=== PATIENT | female | born 1940 | race Caucasian/White ===

== ENCOUNTER 2017-05-16 17:25 | Observation (INO) | payer MEDICARE, MEDICAID ==
[~2017-05-16] VITALS: Ht 157.5 cm; Wt 81.6 kg
[~2017-05-16 17:25] MED LIST: ALBU8.5H IH; AMLO-99 PO; CLON-327 PO; CYCL-277 PO; DICL100G39 TOP; EZET10TA41 PO; FOLI0.8T29 PO; GABA-549 PO; HYDR-2966 PO; IBUP600T22 PO; LIDO700A29 TD; LOSA50TA72 PO; MELO-207 PO; METF-410 PO; METH2.5T43 PO; MONT10TA PO; OXYC-870 PO; POTA20TA94 PO; RANI-318 PO; SIMV-49 PO; SITA100T PO; TIMO5DRO3 OP; TRAM-420 PO; TRILI135PT PO
--- NOTE | 2017-05-16 17:31 | ER Report ---
History and Physical Time Seen By MD: 17:31 (BECKI MURRAY MD) HPI/ROS CHIEF COMPLAINT: cough with pink sputum. HISTORY OF PRESENT ILLNESS: This is a 76 year old female. She was diagnosed with influenza last Tuesday at Wilfredo Alvarado's office. At that time, started on 2 liters of oxygen. She was recommended for admission at that time, but wanted to try to treat at home. Had a follow-up with her again. Today, started to have pink sputum and her cough seems to be worsened. She had diffuse rib and back pain from coughing so much. She is still on the 2 liters of oxygen by nasal canula. Fevers seem to be improving. She finished her Tamiflu yesterday. No other bleeding such as blood in stool, urine, or bruising. No blood thinners. REVIEW OF SYSTEMS: Constitutional: As above. Eyes: No vision changes. ENT: Sore throat and congestion mild. Cardiovascular: No palpitations. Respiratory: As above. Gastrointestinal: No abdominal pain. No nausea or vomiting. No change in bowel movements. Genitourinary: No dysuria. No frequency Musculoskeletal: Pain in ribs and back, but no other. Skin: No rashes. No bruising. Neurological: No numbness. No headache. (BECKI MURRAY MD) Allergies: Coded Allergies: Influenza Virus Vaccines (Verified Allergy, Unknown, 05/16/17) Iodine and Iodide Containing Produc (Verified Allergy, Unknown, 05/16/17) Penicillins (Unverified Allergy, Unknown, 05/16/17) Sulfa (Sulfonamide Antibiotics) (Unverified Allergy, Unknown, 05/16/17) egg (Verified Allergy, Unknown, 05/16/17) morphine (Unverified Allergy, Unknown, 05/16/17) Home Meds Active Scripts Ibuprofen (IBUPROFEN) 600 Mg Tablet, 1 TAB PO Q6H for PAIN, #50 Prov:BRY ALAN DO 02/06/15 Tramadol Hcl (TRAMADOL HCL) 50 Mg Tablet, 50-100 MG PO Q4-6H, #20 Prov:BRY ALAN DO 02/06/15 Reported Medications Diclofenac Sodium 1% Gel (VOLTAREN 1% GEL) 100 Gm Gel..gram., 1 DEANNE TOP QID Y for RASH 02/06/15 Fenofibrate (TRILIPIX) 135 Mg Capsule.dr, 135 MG PO DAILY 02/06/15 Timolol (BETIMOL) 5 Ml Drops, 1 GTT OP BID 02/06/15 Montelukast Sodium (SINGULAIR) 10 Mg Tablet, 1 TAB PO QDAY, TAB 02/06/15 Simvastatin (SIMVASTATIN) 20 Mg Tablet, 20 MG PO HS, TAB 02/06/15 Ranitidine Hcl (RANITIDINE HCL) 150 Mg Tablet, 150 MG PO BID 02/06/15 Albuterol Sulfate 90 Mcg/Act (PROAIR HFA 90 MCG/ACT) 8.5 Gm Hfa.aer.ad, 1-2 PUFF IH 3-4XD Y for SHORTNESS OF BREATH 02/06/15 Potassium Chloride (POTASSIUM CHLORIDE) 20 Meq Tab.er.prt, 20 MEQ PO QDAY 02/06/15 Oxycodone Hcl/Acetaminophen (PERCOCET 10-325 MG TABLET) 1 Each Tablet, 1 EACH PO Q4-6H Y for PAIN, TAB 02/06/15 Methotrexate Sodium (METHOTREXATE) 2.5 Mg Tablet, 6 TAB PO QWEEK 02/06/15 Metformin Hcl (METFORMIN HCL) 500 Mg Tablet, 1 TAB PO TID, TAB 02/06/15 Meloxicam (MELOXICAM) 15 Mg Tablet, 15 MG PO QDAY 02/06/15 Losartan Potassium (LOSARTAN POTASSIUM) 50 Mg Tablet, 50 MG PO QDAY 02/06/15 Lidocaine (LIDODERM) 700 Mg Adh..patch, 1 PATCH TD QDAY 02/06/15 Sitagliptin Phosphate (JANUVIA) 100 Mg Tablet, 100 MG PO QDAY 02/06/15 Hydrochlorothiazide (HYDROCHLOROTHIAZIDE) 25 Mg Tablet, 1 TAB PO QDAY, TAB 02/06/15 Gabapentin (GABAPENTIN) 300 Mg Capsule, 300 MG PO QID, CAPSULE 02/06/15 Folic Acid (FOLIC ACID) 0.8 Mg Tablet, 0.8 MG PO DAILY 02/06/15 Ezetimibe (ZETIA) 10 Mg Tablet, 10 MG PO QDAY 02/06/15 Cyclobenzaprine Hcl (CYCLOBENZAPRINE HCL) 5 Mg Tablet, 10 MG PO TID Y for PAIN, #18 TAB 02/06/15 Clonidine Hcl (CLONIDINE HCL) 0.1 Mg Tablet, 0.1 MG PO TID, TAB 11/19/15 Amlodipine Besylate (AMLODIPINE BESYLATE) 10 Mg Tablet, 1 TAB PO QDAY, TAB 02/06/15 Reviewed Nurses Notes: Yes (BECKI MURRAY MD) Hx Smoking: Yes Smoking Status: Former Smoker Hx Substance Use Disorder: No Hx Alcohol Use: No (BECKI MURRAY MD) Constitutional Vital Sign - Last 24 Hours 05/16/17 05/16/17 05/16/17 05/16/17 17:30 17:31 17:35 17:40 Temp 97.6 Pulse 80 Resp 16 B/P (MAP) 107/97 107/97 (100) 151/123 (132) Pulse Ox 94 O2 Delivery Room Air O2 Flow Rate 2.0 05/16/17 05/16/17 05/16/17 05/16/17 17:42 17:42 17:45 17:52 Pulse 80 80 78 Resp 18 18 Pulse Ox 98 97 O2 Delivery Nasal Cannula O2 Flow Rate 2.0 05/16/17 05/16/17 05/16/17 05/16/17 18:00 18:05 18:25 18:30 Pulse 76 ??? B/P (MAP) 144/87 (106) Pulse Ox 93 92 05/16/17 05/16/17 05/16/17 05/16/17 18:45 19:00 19:14 19:15 Pulse 78 75 76 B/P (MAP) ???/??? (1665) 151/96 (114) Pulse Ox 98 97 94 05/16/17 05/16/17 05/16/17 05/16/17 19:30 19:45 20:00 20:15 Pulse 73 73 78 69 B/P (MAP) 138/88 (105) 142/101 (115) Pulse Ox 98 98 97 94 (BENAJ JADE DO) Physical Exam General Appearance: The patient is alert. Acute distress with coughing. Eyes: Pupils are equal, round. No pallor, injection or icterus. ENT: Mucous membranes are moist. Normal oral mucosa. Neck: Supple and non tender. No lymphadenopathy. Respiratory: Breathing easily and unlabored. Lungs are diminished, but no rales or wheezing. There are no retractions or accessory muscle use. Cardiovascular: Regular rate and rhythm. No murmurs, gallops or rubs. Normal capillary refill. No edema. Gastrointestinal: Abdomen is soft and non tender. Nondistended. Normal active bowel sounds. Neurological: Alert and oriented x3. No focal neurologic deficits Skin: Warm and dry. She has two small areas of bruising on her back, mid back and lower back to the right. Musculoskeletal: Extremities are nontender. Tender throughout the ribs from cough. No tenderness in palpation of the spine. DIFFERENTIAL DIAGNOSIS: After history and physical exam, differential diagnosis was considered for cough with pink tinged sputum, not on blood thinners, but with infectious process (Influenza), concern would be for progression on to pneumonia, PE, other infectious etiology. ([facility],BECKI Romero MD) Medical Decision Making Data Points Result Diagram: 05/16/17 1759 05/16/17 1759 Laboratory Hematology Test 05/16/17 17:59 05/16/17 19:09 Red Blood Count 4.94 M/uL (4.17-5.56) Mean Corpuscular Volume 87.2 fL (80.0-96.0) Mean Corpuscular Hemoglobin 28.5 pg (26.0-33.0) Mean Corpuscular Hemoglobin Concent 32.7 g/dL (32.0-36.0) Red Cell Distribution Width 14.7 % (11.5-14.5) Mean Platelet Volume 9.0 fL (7.2-11.1) Neutrophils (%) (Auto) 53.1 % (39.4-72.5) Lymphocytes (%) (Auto) 39.0 % (17.6-49.6) Monocytes (%) (Auto) 6.6 % (4.1-12.4) Eosinophils (%) (Auto) 0.7 % (0.4-6.7) Basophils (%) (Auto) 0.6 % (0.3-1.4) Nucleated RBC Relative Count (auto) 0.1 /100WBC Neutrophils # (Auto) 2.8 K/uL (2.0-7.4) Lymphocytes # (Auto) 2.0 K/uL (1.3-3.6) Monocytes # (Auto) 0.3 K/uL (0.3-1.0) Eosinophils # (Auto) 0.0 K/uL (0.0-0.5) Basophils # (Auto) 0.0 K/uL (0.0-0.1) Nucleated RBC Absolute Count (auto) 0.01 K/uL Prothrombin Time 13.0 seconds (12.0-14.4) Prothromb Time International Ratio 0.98 Activated Partial Thromboplast Time 27 seconds (23-35) D-Dimer Quantitative (PE/DVT) 0.71 ug/ml (0-0.50) Sodium Level 142 mmol/L (137-145) Potassium Level 3.6 mmol/L (3.5-5.0) Chloride Level 102 mmol/L (98-107) Carbon Dioxide Level 29 mmol/L (22-31) Blood Urea Nitrogen 20 mg/dl (7-18) Creatinine 1.10 mg/dl (0.52-1.04) Glomerular Filtration Rate Calc 48.4 Random Glucose 117 mg/dl (75-110) Lactate 1.3 mmol/L (0.7-2.1) Calcium Level 9.4 mg/dl (8.4-10.2) Total Bilirubin 0.6 mg/dl (0.2-1.3) Aspartate Amino Transf (AST/SGOT) 31 U/L (0-35) Alanine Aminotransferase (ALT/SGPT) 39 U/L (0-56) Alkaline Phosphatase 54 U/L (0-126) Total Protein 7.3 gm/dl (6.3-8.2) Albumin 4.1 g/dl (3.5-5.0) Urine Color Yellow Urine Clarity Clear Urine pH 5.0 pH (4.8-9.5) Urine Specific [place] 1.015 Urine Protein Negative mg/dL (NEGATIVE) Urine Glucose (UA) Negative mg/dL (NEGATIVE) Urine Ketones Negative mg/dL (NEGATIVE) Urine Blood Negative (NEGATIVE) Urine Nitrite Negative (NEGATIVE) Urine Bilirubin Negative (NEGATIVE) Urine Urobilinogen Negative mg/dL (0.2-1.9) Urine Leukocyte Esterase Small (NEGATIVE) Urine RBC None /HPF (0-2/HPF) Urine WBC 1 /HPF (0-5/HPF) Urine Squamous Epithelial Cells Many /LPF (</=FEW) Urine Bacteria Negative /HPF (NONE-FEW) Urine Hyaline Casts Few /LPF (NONE-FEW) Urine Mucus Few /HPF (NONE-FEW) Chemistry Test 05/16/17 17:59 05/16/17 19:09 White Blood Count 5.2 k/uL (4.5-11.0) Red Blood Count 4.94 M/uL (4.17-5.56) Hemoglobin 14.1 g/dL (12.0-16.0) Hematocrit 43.1 % (34.0-47.0) Mean Corpuscular Volume 87.2 fL (80.0-96.0) Mean Corpuscular Hemoglobin 28.5 pg (26.0-33.0) Mean Corpuscular Hemoglobin Concent 32.7 g/dL (32.0-36.0) Red Cell Distribution Width 14.7 % (11.5-14.5) Platelet Count 122 K/uL (150-450) Mean Platelet Volume 9.0 fL (7.2-11.1) Neutrophils (%) (Auto) 53.1 % (39.4-72.5) Lymphocytes (%) (Auto) 39.0 % (17.6-49.6) Monocytes (%) (Auto) 6.6 % (4.1-12.4) Eosinophils (%) (Auto) 0.7 % (0.4-6.7) Basophils (%) (Auto) 0.6 % (0.3-1.4) Nucleated RBC Relative Count (auto) 0.1 /100WBC Neutrophils # (Auto) 2.8 K/uL (2.0-7.4) Lymphocytes # (Auto) 2.0 K/uL (1.3-3.6) Monocytes # (Auto) 0.3 K/uL (0.3-1.0) Eosinophils # (Auto) 0.0 K/uL (0.0-0.5) Basophils # (Auto) 0.0 K/uL (0.0-0.1) Nucleated RBC Absolute Count (auto) 0.01 K/uL Prothrombin Time 13.0 seconds (12.0-14.4) Prothromb Time International Ratio 0.98 Activated Partial Thromboplast Time 27 seconds (23-35) D-Dimer Quantitative (PE/DVT) 0.71 ug/ml (0-0.50) Glomerular Filtration Rate Calc 48.4 Lactate 1.3 mmol/L (0.7-2.1) Calcium Level 9.4 mg/dl (8.4-10.2) Total Bilirubin 0.6 mg/dl (0.2-1.3) Aspartate Amino Transf (AST/SGOT) 31 U/L (0-35) Alanine Aminotransferase (ALT/SGPT) 39 U/L (0-56) Alkaline Phosphatase 54 U/L (0-126) Total Protein 7.3 gm/dl (6.3-8.2) Albumin 4.1 g/dl (3.5-5.0) Urine Color Yellow Urine Clarity Clear Urine pH 5.0 pH (4.8-9.5) Urine Specific [place] 1.015 Urine Protein Negative mg/dL (NEGATIVE) Urine Glucose (UA) Negative mg/dL (NEGATIVE) Urine Ketones Negative mg/dL (NEGATIVE) Urine Blood Negative (NEGATIVE) Urine Nitrite Negative (NEGATIVE) Urine Bilirubin Negative (NEGATIVE) Urine Urobilinogen Negative mg/dL (0.2-1.9) Urine Leukocyte Esterase Small (NEGATIVE) Urine RBC None /HPF (0-2/HPF) Urine WBC 1 /HPF (0-5/HPF) Urine Squamous Epithelial Cells Many /LPF (</=FEW) Urine Bacteria Negative /HPF (NONE-FEW) Urine Hyaline Casts Few /LPF (NONE-FEW) Urine Mucus Few /HPF (NONE-FEW) Coagulation Test 05/16/17 17:59 Prothrombin Time 13.0 seconds Prothromb Time International Ratio 0.98 Activated Partial Thromboplast Time 27 seconds D-Dimer Quantitative (PE/DVT) 0.71 ug/ml Urinalysis Test 05/16/17 19:09 Urine Color Yellow Urine Clarity Clear Urine pH 5.0 pH (4.8-9.5) Urine Specific [place] 1.015 Urine Protein Negative mg/dL (NEGATIVE) Urine Glucose (UA) Negative mg/dL (NEGATIVE) Urine Ketones Negative mg/dL (NEGATIVE) Urine Blood Negative (NEGATIVE) Urine Nitrite Negative (NEGATIVE) Urine Bilirubin Negative (NEGATIVE) Urine Urobilinogen Negative mg/dL (0.2-1.9) Urine Leukocyte Esterase Small (NEGATIVE) Urine RBC None /HPF (0-2/HPF) Urine WBC 1 /HPF (0-5/HPF) Urine Squamous Epithelial Cells Many /LPF (</=FEW) Urine Bacteria Negative /HPF (NONE-FEW) Urine Hyaline Casts Few /LPF (NONE-FEW) Urine Mucus Few /HPF (NONE-FEW) (BENJA JADE DO) EKG/Imaging EKG Interpretation 12 lead EKG: Rhythm: normal sinus rhythm, rate 82 [place]es: normal QRS: Right bundle branch block ST segments: Nonspecific T-wave changes (BECKI MURRAY MD) EKG Interpretation 12 lead EK Rhythm: normal sinus rhythm Dawes: normal QRS: Right bundle branch block pattern ST segments: normal, comparison to previous EKG dated 12/14/13, no significant change Imaging X-ray: Two-view chest x-ray was obtained. I viewed the images myself on the PACS system. My interpretation of the images is: No infiltrate, no effusion, normal mediastinum., Comparison to previous x-ray dated 06/02/16, no significant change. The radiologist interpretation had no clinically significant variation from this interpretation. (BENJA JADE DO) ED Course/Re-evaluation Clinical Indication for ER IV: IV Access (BECKI MURRAY MD) ED Course Care was assumed at shift change with diagnostic studies pending. Patient with continued respiratory distress after having influenza. She now has COPD exacerbation with pink tinged sputum. She has a known history of obstructive an asthmatic symptoms. She's never been a smoker. She's better with a DuoNeb. Patient has elevated d-dimer worrisome for potential pulmonary embolism with her pink tinged sputum. She may need a ventilation perfusion scan. Patient has asthma exacerbation from her recent influenza. Her case was discussed with the hospitalist science consultant Dr. Goodson for consideration of admission. 05/16/2017 7:11:28 pm case discussed with Dr. Miguel A Cordova hospitalist on-call Decision to Disposition Date: May 16, 2017 Decision to Disposition Time: 19:11 (BENJA JADE DO) Depart Departure Latest Vital Signs Vital Signs Date Time Temp Pulse Resp B/P (MAP) Pulse Ox O2 Delivery O2 Flow Rate FiO2 05/16/17 20:15 69 94 05/16/17 20:00 142/101 (115) 05/16/17 17:52 18 05/16/17 17:42 Nasal Cannula 2.0 05/16/17 17:30 97.6 (BENJA JADE DO) Impression: Primary Impression: Asthma exacerbation Additional Impressions: Influenza Blood-tinged sputum Condition: Improved Disposition: Admitted from ER Referrals: WILFREDO ALVARADO PA-C (PCP) Problem Qualifiers Primary Impression: Asthma exacerbation Asthma severity: mild Asthma persistence: intermittent Qualified Codes: J45.21 - Mild intermittent asthma with (acute) exacerbation BECKI MURRAY MD May 16, 2017 17:31 BENJA JADE DO May 16, 2017 18:16
[2017-05-16] MEDS ORDERED: ACETAMIN/CODEINE #3 300-30 MG PO ONE (17:40)
[2017-05-16] MEDS ORDERED: ALBUTEROL/IPRATROPIUM 3 ML NEB ONE (17:45)
--- NOTE | 2017-05-16 18:11 | EKG ---
FAC[place]: [facility] [place]IENT NAME: JIMENA HERR : [id number] MR: [id number] V: [id number] EXAM DATE: ORDERING PHYSICIAN: BECKI MURRAY TECHNOLOGIST: AVEL Hernandez Reason : COUGH Blood Pressure : / mmHG Vent. Rate : 082 BPM Atrial Rate : 082 BPM P-R Int : 156 ms QRS Dur : 144 ms QT Int : 436 ms P-R-T Axes : 060 085 -03 degrees QTc Int : 509 ms Normal sinus rhythm Right bundle branch block Abnormal ECG No previous ECGs available Confirmed by DAISY JONES ([id number]) on 05/16/2017 10:59:06 PM Referred By: TREVOR Confirmed By:DAISY JONES
[2017-05-16 18:14] LABS: PLATELET COUNT, AUTOMATED 122 K/uL (150-450)
[2017-05-16 18:32] LABS: INR 0.98
[2017-05-16] MEDS ORDERED: INFLUENZA VIRUS VAC 0.5 ML SYR IM ONLY ONE (19:30)
[2017-05-16] MEDS ORDERED: ALBUTEROL 2.5 MG/3 ML NEB NEB PRN (19:30)
[2017-05-16] MEDS ORDERED: BENZONATATE 100 MG CAP PO PRN (19:30)
--- NOTE | 2017-05-16 19:33 | RADIOLOGY IMAGING REPORT ---
FACILITY: [facility] - [place] PATIENT NAME: Juli Almeida : 1940 MR: [id number] V: [id number] EXAM DATE: ORDERING PHYSICIAN: BECKI MURRAY TECHNOLOGIST: [facility] [place] Patient: Juli Almeida : 1940 Visit/Account:[id number] Date of Sevice: 05/16/2017 Technique: CHEST PA AND LAT HISTORY: cough, pink sputum Comparison studies: Chest radiographs June 02, 2016 FINDINGS: No lobar airspace consolidation. No pleural effusion. The cardiac silhouette is unchanged. Surgical clips overlie the left chest. IMPRESSION: 1. No acute cardiopulmonary process. Report Dictated By: Florentino Gonzalez DO at 05/16/2017 7:28 PM Report E-Signed By: Florentino Gonzalez DO at 05/16/2017 7:30 PM WSN:[id number]
[2017-05-16] MEDS ORDERED: methylPREDNIS SUCC 125 MG/2ML IVP ONE (20:05)
--- NOTE | 2017-05-16 21:38 | History & Physical ---
History of Present Illness History of Present Illness 76yo female with a h/o Asthma, RA, T2DM and recent influenza who was sent to the ER for a worsening cough. 7 days ago, she developed fevers and chills. 6 days ago, she went to her PCP's office and was diagnosed with influenza. She was started on 5 days of Tamiflu and Levofloxacin. She was found to be hypoxic , so was placed on 24 hour a day O2 at 2 liters. The fevers resolved yesterday. However, today, she developed a worsening cough with pink sputum and felt more SOB. She denies edema, orthopnea, PND. She has pain in her upper back below her ribs with coughing that started today. In the ER, she was given Tylenol with codeine, DuoNeb and SoluMedrol IV. History Problems: (1) Asthma Status: Chronic (2) Hyperlipemia (3) HTN (hypertension) Status: Chronic (4) T2DM (type 2 diabetes mellitus) Status: Chronic (5) Rheumatoid arthritis Status: Chronic Home Meds Active Scripts Ibuprofen (IBUPROFEN) 600 Mg Tablet, 1 TAB PO Q6H for PAIN, #50 Prov:BRY ALAN DO 02/06/15 Tramadol Hcl (TRAMADOL HCL) 50 Mg Tablet, 50-100 MG PO Q4-6H, #20 Prov:BRY ALAN DO 02/06/15 Reported Medications Diclofenac Sodium 1% Gel (VOLTAREN 1% GEL) 100 Gm Gel..gram., 1 DEANNE TOP QID Y for RASH 02/06/15 Fenofibrate (TRILIPIX) 135 Mg Capsule.dr, 135 MG PO DAILY 02/06/15 Timolol (BETIMOL) 5 Ml Drops, 1 GTT OP BID 02/06/15 Montelukast Sodium (SINGULAIR) 10 Mg Tablet, 1 TAB PO QDAY, TAB 02/06/15 Simvastatin (SIMVASTATIN) 20 Mg Tablet, 20 MG PO HS, TAB 02/06/15 Ranitidine Hcl (RANITIDINE HCL) 150 Mg Tablet, 150 MG PO BID 02/06/15 Albuterol Sulfate 90 Mcg/Act (PROAIR HFA 90 MCG/ACT) 8.5 Gm Hfa.aer.ad, 1-2 PUFF IH 3-4XD Y for SHORTNESS OF BREATH 02/06/15 Potassium Chloride (POTASSIUM CHLORIDE) 20 Meq Tab.er.prt, 20 MEQ PO QDAY 02/06/15 Oxycodone Hcl/Acetaminophen (PERCOCET 10-325 MG TABLET) 1 Each Tablet, 1 EACH PO Q4-6H Y for PAIN, TAB 02/06/15 Methotrexate Sodium (METHOTREXATE) 2.5 Mg Tablet, 6 TAB PO QWEEK 02/06/15 Metformin Hcl (METFORMIN HCL) 500 Mg Tablet, 1 TAB PO TID, TAB 02/06/15 Meloxicam (MELOXICAM) 15 Mg Tablet, 15 MG PO QDAY 02/06/15 Losartan Potassium (LOSARTAN POTASSIUM) 50 Mg Tablet, 50 MG PO QDAY 02/06/15 Lidocaine (LIDODERM) 700 Mg Adh..patch, 1 PATCH TD QDAY 02/06/15 Sitagliptin Phosphate (JANUVIA) 100 Mg Tablet, 100 MG PO QDAY 02/06/15 Hydrochlorothiazide (HYDROCHLOROTHIAZIDE) 25 Mg Tablet, 1 TAB PO QDAY, TAB 02/06/15 Gabapentin (GABAPENTIN) 300 Mg Capsule, 300 MG PO QID, CAPSULE 02/06/15 Folic Acid (FOLIC ACID) 0.8 Mg Tablet, 0.8 MG PO DAILY 02/06/15 Ezetimibe (ZETIA) 10 Mg Tablet, 10 MG PO QDAY 02/06/15 Cyclobenzaprine Hcl (CYCLOBENZAPRINE HCL) 5 Mg Tablet, 10 MG PO TID Y for PAIN, #18 TAB 02/06/15 Clonidine Hcl (CLONIDINE HCL) 0.1 Mg Tablet, 0.1 MG PO TID, TAB 02/06/15 Amlodipine Besylate (AMLODIPINE BESYLATE) 10 Mg Tablet, 1 TAB PO QDAY, TAB 02/06/15 Allergies: Coded Allergies: Influenza Virus Vaccines (Verified Allergy, Unknown, 05/16/17) Iodine and Iodide Containing Produc (Verified Allergy, Unknown, 05/16/17) Penicillins (Unverified Allergy, Unknown, 05/16/17) Sulfa (Sulfonamide Antibiotics) (Unverified Allergy, Unknown, 05/16/17) egg (Verified Allergy, Unknown, 05/16/17) morphine (Unverified Allergy, Unknown, 05/16/17) Other Social/Family Hx Only smoked 5 years and quit in 1991. Rare alcohol use. Hx Smoking: Yes Smoking Status: Former Smoker Hx Alcohol Use: No Hx Substance Use Disorder: No Review of Systems All Systems Reviewed/Normal: Yes, Except as Noted Exam Vital Signs Vital Signs Date Time Temp Pulse Resp B/P (MAP) Pulse Ox O2 Delivery O2 Flow Rate FiO2 05/16/17 18:25 92 05/16/17 18:05 76 05/16/17 18:00 144/87 (106) 05/16/17 17:52 18 05/16/17 17:42 Nasal Cannula 2.0 05/16/17 17:30 97.6 General Appearance: Alert, Awake, Other (tired and coughing a lot) Neuro: No Gross deficits Eyes: PERRLA ENT: Moist Mucous Membranes Cardiovascular: Regular Rate and Rhythm, No JVD Respiratory: Clear to Auscultation (Limited by couging) GI: Abd Soft and Non-Tender Extremities: No Edema Integumentary: No Jaundice, No Cyanosis Medical Decision Making Data Points Result Diagram: 05/16/17175805/16/171758 Item Value Date Time Neutrophils (%) (Auto) 53.1 % 05/16/171758 Lymphocytes (%) (Auto) 39.0 % 05/16/171758 Monocytes (%) (Auto) 6.6 % 05/16/171758 Eosinophils (%) (Auto) 0.7 % 05/16/171758 Basophils (%) (Auto) 0.6 % 05/16/171758 Nucleated RBC Relative Count (auto) 0.1 /100WBC 05/16/171758 D-Dimer Quantitative (PE/DVT) 0.71 ug/ml H 05/16/171758 Creatinine 1.10 mg/dl H 05/16/171758 Blood Urea Nitrogen 20 mg/dl H 05/16/171758 Random Glucose 117 mg/dl H 05/16/171758 Lactate 1.3 mmol/L 05/16/171758 Calcium Level 9.4 mg/dl 05/16/171758 Total Bilirubin 0.6 mg/dl 05/16/171758 Aspartate Amino Transf (AST/SGOT) 31 U/L 05/16/17 175 Alanine Aminotransferase (ALT/SGPT) 39 U/L 05/16/17 175 Alkaline Phosphatase 54 U/L 05/16/171758 Total Protein 7.3 gm/dl 2/26/18 1759 Albumin 4.1 g/dl 05/16/17 175 Urine Leukocyte Esterase Small H 05/16/171908 Urine RBC None /HPF 05/16/171908 Urine WBC 1 /HPF 05/16/171908 Urine Squamous Epithelial Cells Many /LPF H 05/16/171908 EKG / Imaging Imaging CXR - 1. No acute cardiopulmonary process. Assessment and Plan Problems: (1) Hypoxia Status: Acute Assessment & Plan: She presented with a day of worsening cough and SOB. She was treated with Tamiflu and Levofloxacin for a 5 day course ending yesterday. CXR is wnl. CBC and differential are normal. She is afebrile. Likely, she has an asthma exacerbation. Her D-Dimer is slightly elevated and is reporting pink sputum. Will give a dose of renally dosed Lovenox and order a V/Q scan for the morning. (2) Asthma Status: Chronic Assessment & Plan: Continue IV steroids. Will give scheduled DuoNebs, Singulair and prn Albuterol. (3) HTN (hypertension) Status: Chronic Assessment & Plan: We need to clarify her dosing and times. Continue Toprol, Losartan, Amlodipine and HCTZ with parameters. (4) T2DM (type 2 diabetes mellitus) Status: Chronic Assessment & Plan: Hold metformin, and continue Januvia. SSI to cover. (5) Rheumatoid arthritis Status: Chronic Assessment & Plan: Hold leflunomide and MTX for now. (6) CKD (chronic kidney disease) stage 3, GFR 30-59 ml/min Status: Chronic Assessment & Plan: Baseline creatinine appears to be 1.1. Copies to: WILFREDO GALLARDO PA-C Venous Thromboembolism Antithrombotics Is Pt On Any Antithrombotics?: No Exam Sepsis Risk: No Definite Risk Problem Qualifiers (1) Asthma: Asthma complication type: with acute exacerbation DAISY JONES MD May 16, 2017 21:38
[2017-05-16] MEDS ORDERED: cloNIDine HCL 0.1 MG TAB PO ONE (21:55)
[2017-05-16] MEDS ORDERED: GABAPENTIN 300 MG CAP PO ONE (21:55)
[2017-05-16] MEDS ORDERED: ENOXAPARIN 100 MG/ML SYR SC SCH (22:00)
[2017-05-16 22:41] VITALS: BP 143/81
[2017-05-16] MEDS: guaiFENesin 600 MG TABCR PO SCH (22:42)
[2017-05-17 03:06] VITALS: BP 159/94
[2017-05-17] MEDS: methylPREDNIS SUCC 125 MG/2ML IVP SCH ×2 (04:05→12:16)
[2017-05-17] MEDS: ALBUTEROL/IPRATROPIUM 3 ML NEB NEB SCH ×3 (05:38→13:26)
[2017-05-17 07:11] VITALS: BP 141/89
[2017-05-17] MEDS: cloNIDine HCL 0.1 MG TAB PO SCH ×2 (08:32→14:00)
[2017-05-17] MEDS: guaiFENesin 600 MG TABCR PO SCH (08:33)
[2017-05-17] MEDS: GABAPENTIN 300 MG CAP PO SCH ×2 (08:33→12:15)
[2017-05-17] MEDS: INSULIN HUM LISPRO 100 UN/ML 3 ML VIAL SUBQ PRN ×2 (08:36→12:08)
[2017-05-17] MEDS ORDERED: LOSARTAN POTASSIUM 50 MG TAB PO SCH (09:00)
[2017-05-17] MEDS ORDERED: METOPROLOL SUCC XL 50 MG TABCR 50 MG TAB.ER.24H PO SCH (09:00)
[2017-05-17] MEDS ORDERED: HYDROCHLOROTHIAZIDE 25 MG TAB PO SCH (09:00)
[2017-05-17] MEDS ORDERED: amLODIPine BESYL(*) 5 MG TAB PO SCH (09:00)
[2017-05-17] MEDS ORDERED: MONTELUKAST SODIUM 10 MG TAB PO SCH (09:00)
[2017-05-17 11:27] VITALS: Ht 157.5 cm; Wt 81.6 kg
[2017-05-17 11:59] VITALS: BP 149/82
--- NOTE | 2017-05-17 13:27 | RADIOLOGY IMAGING REPORT ---
FACILITY: [facility] - [place] PATIENT NAME: Juli Almeida : 1940 MR: [id number] V: [id number] EXAM DATE: ORDERING PHYSICIAN: RAJAT ATYLOR TECHNOLOGIST: Location: [facility] - [place] Patient: Juli Almeida : 1940 Visit/Account:[id number] Date of Sevice: 05/17/2017 Examination: Nuclear medicine ventilation and perfusion imaging COMPARISON: Chest x-ray yesterday. HISTORY: chest pain, hypoxia TECHNIQUE: 32.8 mCi aerosolized technetium 99m DTPA was administered by inhalation. Multiplanar static images w ere obtained. 2.5 mCi Tc MAA was injected intravenously. Gamma camera images were obtained of the chest in various orientations. FINDINGS: Lung ventilation radiotracer distribution: Mildly heterogeneous tracer distribution particularly in t he left lung but no segmental ventilation defect. Lung perfusion radiotracer distribution: Similar to the ventilation portion of study there is mildly heterogeneous distribution in the anterior left lung. No segmental perfusion defect. Correlation to chest x-ray: No consolidation or effusion. IMPRESSION: Negative VQ scan for pulmonary embolism. Report Dictated By: Philip Levine MD at 05/17/2017 1:21 PM Report E-Signed By: Philip Levine MD at 05/17/2017 1:23 PM WSN:[id number]
[2017-05-17] MEDS ORDERED: MONT10TA PO (13:48)
[2017-05-17] MEDS ORDERED: GUAI600T57 PO (13:48)
[2017-05-17] MEDS ORDERED: PRED-1 PO (13:48)
[2017-05-17] MEDS ORDERED: METO-253 PO (13:48)
--- NOTE | 2017-05-17 14:02 | Hospitalist Depart ---
Discharge Summary Reason for Hosp/Final Diag: (1) Hypoxia Status: Acute Hospital Course & Plan: She presented with a day of worsening cough and SOB. She was treated with Tamiflu and Levofloxacin for a 5 day course ending yesterday. CXR is negative. CBC and differential are normal. She has been afebrile. Likely, she has an asthma exacerbation. Her D-Dimer was slightly elevated. She did have a dose of Lovenox empirically until V/Q scan could be done (she has severe allergy to IV contrast dye). Her V/Q scan is negative for pulmonary embolus. She was doing fairly well and tolerating low levels of activity. She will be on oxygen at 2L continuous for now. She will follow up closely with Wilfredo WEIR. She was advised to be off work until released to return by her primary care provider. (2) Asthma Status: Chronic Hospital Course & Plan: She will finish a short pulse of prednisone as an outpatient. She has also been started on Singulair 10mg daily. She did not wish to continue albuterol at this time. (3) HTN (hypertension) Status: Chronic Hospital Course & Plan: Continue Toprol, Losartan, Amlodipine, clonidine and HCTZ. (4) T2DM (type 2 diabetes mellitus) Status: Chronic Hospital Course & Plan: Continue metformin and Januvia. (5) Rheumatoid arthritis Status: Chronic Hospital Course & Plan: Hold leflunomide and Enbrel until instructed to resume by her primary care provider. (6) CKD (chronic kidney disease) stage 3, GFR 30-59 ml/min Status: Chronic Hospital Course & Plan: Stable. Baseline creatinine appears to be 1.1. Departure Weight (Pounds): 180 Result Diagram: 05/16/17175805/16/171758 Item Value Date Time Urine Mucus Few /HPF 05/16/17 1909 Urine Hyaline Casts Few /LPF 05/16/17 190 Urine Bacteria Negative /HPF 05/16/17 190 Urine Squamous Epithelial Cells Many /LPF H 05/16/17 190 Urine WBC 1 /HPF 05/16/17 190 Urine RBC None /HPF 05/16/17 190 Urine Leukocyte Esterase Small H 05/16/17 190 Urine Urobilinogen Negative mg/dL 05/16/171908 Urine Bilirubin Negative 05/16/171908 Urine Nitrite Negative 05/16/171908 Urine Blood Negative 05/16/171908 Urine Ketones Negative mg/dL 05/16/171908 Urine Glucose (UA) Negative mg/dL 05/16/171908 Urine Protein Negative mg/dL 05/16/171908 Urine Specific [place] 1.015 05/16/171908 Urine pH 5.0 pH 05/16/171908 Urine Clarity Clear 05/16/171908 Urine Color Yellow 05/16/171908 D-Dimer Quantitative (PE/DVT) 0.71 ug/ml H 05/16/171758 Activated Partial Thromboplast Time 27 seconds 05/16/171758 Prothromb Time International Ratio 0.98 05/16/171758 Prothrombin Time 13.0 seconds 05/16/171758 [facility] *LIVE* [address] [place] [address] EUGENIE TRIPATHI M.D., DIRECTOR OF LABORATORY SERVICES MARJ TAY M.D., PATHOLOGIST RUN DATE: 05/17/17 Specimen Inquiry Report PAGE 1 RUN TIME: 1001 PATIENT: JULI ALMEIDA ACCT: [id number] LOC: MED U : [id number] AGE/SX: 76/F ROOM: 2266 REG : 05/16/[address]: DAISY JONES MD : 1940 BED: 266 DIS : STATUS: ADM Mert TLOC: SPEC #: [id number] JEFFREY: 05/16/17 STATUS: RES REQ #: [id number] RECD: 05/16/[address] [facility] [address]: BECKI MURRAY MD SOURCE: BLOOD ENTR: 05/16/17-1739 [facility] DR: WLIFREDO GALLARDO PA-C [facility]: ORDERED: CULT BLOOD Procedure Result Verified BLOOD CULTURE Preliminary 05/17/17-1000 NO GROWTH AFTER 1 DAY, REINCUBATED [facility] *LIVE* [address] [place] [address] EUGENIE TRIPATHI M.D., DIRECTOR OF LABORATORY SERVICES MARJ TAY M.D., PATHOLOGIST RUN DATE: 05/17/17 Specimen Inquiry Report PAGE 1 RUN TIME: 1001 PATIENT: JULI ALMEIDA ACCT: [id number] LOC: MED U : [id number] AGE/SX: 76/F ROOM: [facility] REG : 05/16/[address]: DAISY JONES MD : 1940 BED: 266 DIS : STATUS: ADM Mert TLOC: SPEC #: [id number] JEFFREY: 05/16/17 STATUS: RES REQ #: [id number] RECD: 05/16/[address] [facility] [address]: BECKI MURRAY MD SOURCE: BLOOD ENTR: 05/16/17-[address]: WILFREDO GALLARDO PA-C [facility]: ORDERED: CULT BLOOD Procedure Result Verified BLOOD CULTURE Preliminary 05/17/17-1000 NO GROWTH AFTER 1 DAY, REINCUBATED Imaging PATIENT NAME: Juli Almeida : 1940 MR: [id number] V: [id number] EXAM DATE: [id number] ORDERING PHYSICIAN: BECKI MURRAY TECHNOLOGIST: Location: [facility] Patient: Juli Almeida : 1940 Visit/Account:[id number] Date of Sevice: 05/16/2017 Technique: CHEST PA AND LAT HISTORY: cough, pink sputum Comparison studies: Chest radiographs June 02, 2016 FINDINGS: No lobar airspace consolidation. No pleural effusion. The cardiac silhouette is unchanged. Surgical clips overlie the left chest. IMPRESSION: 1. No acute cardiopulmonary process. Report Dictated By: Florentino Gonzalez DO at 05/16/2017 7:28 PM Report E-Signed By: Florentino Gonzalez DO at 05/16/2017 7:30 PM WSN:[id number] PATIENT NAME: Juli Almeida : 1940 MR: [id number] V: [id number] EXAM DATE: [id number] ORDERING PHYSICIAN: RAJAT TAYLOR TECHNOLOGIST: Location: [facility] Patient: Juli Almeida : 1940 Visit/Account:[id number] Date of Sevice: 05/17/2017 Examination: Nuclear medicine ventilation and perfusion imaging COMPARISON: Chest x-ray yesterday. HISTORY: chest pain, hypoxia TECHNIQUE: 32.8 mCi aerosolized technetium 99m DTPA was administered by inhalation. Multiplanar static images were obtained. 2.5 mCi Tc MAA was injected intravenously. Gamma camera images were obtained of the chest in various orientations. FINDINGS: Lung ventilation radiotracer distribution: Mildly heterogeneous tracer distribution particularly in the left lung but no segmental ventilation defect. Lung perfusion radiotracer distribution: Similar to the ventilation portion of study there is mildly heterogeneous distribution in the anterior left lung. No segmental perfusion defect. Correlation to chest x-ray: No consolidation or effusion. IMPRESSION: Negative VQ scan for pulmonary embolism. Report Dictated By: Philip Levine MD at 05/17/2017 1:21 PM Report E-Signed By: Philip Levine MD at 05/17/2017 1:23 PM WSN:[id number] EKG PATIENT NAME: JULI ALMEIDA : [id number] MR: [id number] V: [id number] EXAM DATE: [id number] ORDERING PHYSICIAN: BECKI MURRAY TECHNOLOGIST: AVEL Hernandez Reason : COUGH Blood Pressure : / mmHG Vent. Rate : 082 BPM Atrial Rate : 082 BPM P-R Int : 156 ms QRS Dur : 144 ms QT Int : 436 ms P-R-T Axes : 060 085 -03 degrees QTc Int : 509 ms Normal sinus rhythm Right bundle branch block Abnormal ECG No previous ECGs available Confirmed by DAISY JONES ([id number]) on 05/16/2017 10:59:06 PM Referred By: TREVOR Confirmed By:DAISY JONES Condition: Improved Discharge: Home Time Spent: > 30 min Discharge Instructions Home Meds Active Scripts Prednisone 10 Mg Tab (PREDNISONE 10 MG TAB) 10 Mg Tablet, 40 MG PO QDAY, #14 TAB 0 Refills Four tabs a day for two days, then two tabs a day for two days, then one tab a day for two days, then off. Prov:LALA TAYLOR MD 05/17/17 Guaifenesin (MUCINEX) 600 Mg Tablet.er, 1200 MG PO BID, #20 TAB 0 Refills Prov:LALA TAYLOR MD 05/17/17 Montelukast Sodium (SINGULAIR) 10 Mg Tablet, 10 MG PO QDAY, #30 TAB 1 Refill Prov:LALA TAYLOR MD 05/17/17 Reported Medications Etanercept (ENBREL) 50 Mg/1 Ml Pen.injctr, 50 MG SQ QWEEK 05/17/17 Metoprolol Succinate (METOPROLOL SUCCINATE) 100 Mg Tab.er.24h, 100 MG PO DAILY, #30 TAB 05/17/17 Fenofibrate (TRILIPIX) 135 Mg Capsule.dr, 135 MG PO DAILY 02/06/15 Timolol (BETIMOL) 5 Ml Drops, 1 GTT OP BID 02/06/15 Simvastatin (SIMVASTATIN) 20 Mg Tablet, 20 MG PO HS, TAB 02/06/15 Ranitidine Hcl (RANITIDINE HCL) 150 Mg Tablet, 150 MG PO BID 02/06/15 Potassium Chloride (POTASSIUM CHLORIDE) 20 Meq Tab.er.prt, 20 MEQ PO QDAY 02/06/15 Metformin Hcl (METFORMIN HCL) 500 Mg Tablet, 1 TAB PO TID, TAB 02/06/15 Meloxicam (MELOXICAM) 15 Mg Tablet, 15 MG PO QDAY 02/06/15 Losartan Potassium (LOSARTAN POTASSIUM) 50 Mg Tablet, 100 MG PO QDAY 02/06/15 Lidocaine (LIDODERM) 700 Mg Adh..patch, 1 PATCH TD QDAY 02/06/15 Sitagliptin Phosphate (JANUVIA) 100 Mg Tablet, 100 MG PO QDAY 02/06/15 Hydrochlorothiazide (HYDROCHLOROTHIAZIDE) 25 Mg Tablet, 1 TAB PO QDAY, TAB 02/06/15 Gabapentin (GABAPENTIN) 300 Mg Capsule, 300 MG PO QID, CAPSULE 02/06/15 Ezetimibe (ZETIA) 10 Mg Tablet, 10 MG PO QDAY 02/06/15 Cyclobenzaprine Hcl (CYCLOBENZAPRINE HCL) 5 Mg Tablet, 10 MG PO TID Y for PAIN, #18 TAB 02/06/15 Clonidine Hcl (CLONIDINE HCL) 0.1 Mg Tablet, 0.1 MG PO TID, TAB 02/06/15 Amlodipine Besylate (AMLODIPINE BESYLATE) 10 Mg Tablet, 1 TAB PO QDAY, TAB 02/06/15 Discontinued Reported Medications Diclofenac Sodium 1% Gel (VOLTAREN 1% GEL) 100 Gm Gel..gram., 1 DEANNE TOP QID Y for RASH 02/06/15 Montelukast Sodium (SINGULAIR) 10 Mg Tablet, 1 TAB PO QDAY, TAB 02/06/15 Albuterol Sulfate 90 Mcg/Act (PROAIR HFA 90 MCG/ACT) 8.5 Gm Hfa.aer.ad, 1-2 PUFF IH 3-4XD Y for SHORTNESS OF BREATH 02/06/15 Oxycodone Hcl/Acetaminophen (PERCOCET 10-325 MG TABLET) 1 Each Tablet, 1 EACH PO Q4-6H Y for PAIN, TAB 02/06/15 Methotrexate Sodium (METHOTREXATE) 2.5 Mg Tablet, 6 TAB PO QWEEK 02/06/15 Folic Acid (FOLIC ACID) 0.8 Mg Tablet, 0.8 MG PO DAILY 02/06/15 Discontinued Scripts Ibuprofen (IBUPROFEN) 600 Mg Tablet, 1 TAB PO Q6H for PAIN, #50 Prov:BRY ALAN DO 02/06/15 Tramadol Hcl (TRAMADOL HCL) 50 Mg Tablet, 50-100 MG PO Q4-6H, #20 Prov:BRY ALAN DO 02/06/15 Follow up Referrals: Family Practice @ [facility] Diet: Diabetic Activity: As Tolerated, No Exertion (Off work until released by Wilfredo WEIR to return.) Special Instructions: Home oxygen at 2L via nasal cannula continuously. Fllow up with Wilfredo Gallardo in next 5-7 days or sooner if any problems. Copies to: WILFREDO GALLARDO PA-C Venous Thromboembolism Antithrombotics Is Pt On Any Antithrombotics?: No Problem Qualifiers (1) Asthma: Asthma complication type: with acute exacerbation LALA TAYLOR MD May 17, 2017 14:01
[2017-05-17] MEDS ORDERED: METO100T20 PO (14:12)
[2017-05-17] MEDS ORDERED: ETAN50PE3 SQ (14:12)
[2017-05-17] MEDS ORDERED: EZETIMIBE 10 MG TAB PO SCH (21:00)
== END 2017-05-17 13:48 | disposition home or self-care (01) ==
LOC: ER 17:57 → MED 20:18
PROVIDERS: ADMIT Internal Medicine; ATTEND Internal Medicine
DX: J11.1 Influenza due to unidentified influenza virus with other respiratory manifestations (principal); J45.21 Mild intermittent asthma with (acute) exacerbation; R04.2 Hemoptysis; R09.02 Hypoxemia; I12.9 Hypertensive chronic kidney disease with stage 1 through stage 4 chronic kidney disease, or unspecified chronic kidney disease; E11.22 Type 2 diabetes mellitus with diabetic chronic kidney disease; N18.3 Chronic kidney disease, stage 3 (moderate); M06.9 Rheumatoid arthritis, unspecified
CPT/HCPCS: 36415; 36416; 71046; 78582; 81001; 82948; 83605; 85025; 85379; 85610; 85730; 87040; 93005; 94640; 96372; 96374; 99285; A9270; A9539; A9540; G0378; J1650; J1815; J2930; J7620; 82040; 82247; 82310; 82374; 82435; 82565; 82947; 84075; 84132; 84155; 84295; 84450; 84460; 84520

== ENCOUNTER → 2017-10-18 | Outpatient (CLI) | payer MEDICARE, MEDICAID ==
[2017-05-17 11:27] VITALS: BMI 32.9
[~2017-10-18] MED LIST changes: +ETAN50PE3 SQ; +GUAI600T57 PO; -METF-410 PO; +METF-411 PO; +METO-253 PO; +METO100T20 PO; +PRED-1 PO
--- NOTE | 2017-10-18 10:15 | RADIOLOGY IMAGING REPORT ---
FACILITY: [facility] PATIENT NAME: Juli Almeida : 1940 MR: [id number] V: [id number] EXAM DATE: ORDERING PHYSICIAN: WILFREDO GALLARDO TECHNOLOGIST: [place] [facility] [place] : 1940 Visit/Account:[id number] Date of Sevice: 10/18/2017 Exam type: ANKLE BRACHIAL INDICES History: Peripheral neuropathy Comparison: None. Findings: Signal pressure the right brachial artery is 148 mmHg. The segmental pressure in the right posterior tibial artery is 163 mmHg. Segmental pressure in the right dorsalis pedis artery is 140 mmHg. The segmental pressure in the right great toe is 135 mmHg. The MARIA ESTHER on the right is 1.10 and the TBI on t he right is 0.91. Segmental pressure in the left brachial artery is 141 mmHg. The segmental pressure in left posterior tibial artery is 174 mL of mercury. The signal pressure the left dorsalis pedis artery is 155 mille rs of mercury. Segmental pressure in left great toe is 150 millers of mercury. The MARIA ESTHER on the left is 1.18 the TBI on the left is 0.78. No significant dampening is identified in the PVR waveforms at the ankles IMPRESSION: 1. MARIA ESTHER on the right is 1.10, left 1.18 TBI in the right is 0.91 and on the left 0.78 Report Dictated By: Valencia Higuera MD at 10/18/2017 10:06 AM Report E-Signed By: Valencia Higuera MD at 10/18/2017 10:11 AM WSN:[id number]
--- NOTE | 2017-10-18 16:34 | RADIOLOGY IMAGING REPORT ---
FACILITY: [facility] PATIENT NAME: JIMENA HERR : [id number] MR: [id number] V: [id number] EXAM DATE: [id number] ORDERING PHYSICIAN: WILFREDO GALLARDO TECHNOLOGIST: Brianna Ta PROCEDURE:RIGHT DIGITAL DIAGNOSTIC MAMMOGRAM WITH CAD ASSISTED INTERPRETATION & 3D TOMOSYNTHESIS COMPARISON:Prior Right mammograms 01/30/16, 01/16/15, 09/28/13, 08/22/12, 06/17/11. INDICATIONS:RIGHT BREAST PAIN. PATIENT ALSO HAS A HISTORY OF PRIOR LEFT MASTECTOMY FOR BREAST CANCER. FINDINGS: A small amount of fibroglandular tissue is seen throughout the Right breast. The parenchymal pattern has remained stable allowing for difference in mammographic technique & patient positioning. There is no evidence of malignant appearing mass, malignant appearing calcifications or other secondary sign of malignancy in the Right breast. Today's Right breast Ultrasound revealed no sonographic abnormality therefore clinical follow-up recommended for patient's Right breast pain. DIAGNOSTIC CATEGORY 2--BENIGN FINDING. RECOMMENDATIONS: ROUTINE MAMMOGRAM AND CLINICAL EVALUATION. CLINICAL EVALUATION. IMPRESSION: BIRADS 2: Benign finding. No significant abnormality is seen. Clinical follow-up recommended for patient's Right breast pain. Dictated by: Valencia Higuera M.D. on 10/18/2017 at 10:56 Transcribed by: LIAM on 10/18/2017 at 11:09 Approved by: Valencia Higuera M.D. on 10/18/2017 at 16:32 [facility]
--- NOTE | 2017-10-18 16:34 | RADIOLOGY IMAGING REPORT ---
FACILITY: [facility] PATIENT NAME: JIMENA HERR : [id number] MR: [id number] V: [id number] EXAM DATE: ORDERING PHYSICIAN: WILFREDO GALLARDO TECHNOLOGIST: Ivet Escalante RDMS(ABD,OBGYN,BR),RVT PROCEDURE:US RIGHT BREAST COMPLETE COMPARISON:None. INDICATIONS:Right Breast Pain FINDINGS: The medial aspect of the Right breast was imaged from the 12-6 o'clock positions demonstrating no sonographic abnormality cystic or solid. Today's mammogram likewise revealed no abnormality therefore clinical follow-up recommended for patient's Right breast pain. DIAGNOSTIC CATEGORY 2--BENIGN FINDING. RECOMMENDATIONS: ROUTINE MAMMOGRAM AND CLINICAL EVALUATION. CLINICAL EVALUATION. IMPRESSION: BIRADS 2: Benign finding. No sonographic or mammographic abnormality identified in the Right breast to account for patient's Right breast pain therefore clinical follow-up recommended. Dictated by: Valencia Higuera M.D. on 10/18/2017 at 11:26 Transcribed by: LIAM on 10/18/2017 at 11:43 Approved by: Valencia Higuera M.D. on 10/18/2017 at 16:32 [facility]
== END ==
LOC: MAMO 01:57
PROVIDERS: ATTEND Physician Assistant
DX: N64.4 Mastodynia (principal); G60.3 Idiopathic progressive neuropathy; E11.42 Type 2 diabetes mellitus with diabetic polyneuropathy
CPT/HCPCS: 77061; 77065; 93922